=== PATIENT | male | born 1980 ===

== ENCOUNTER 2023-03-13 17:20 | Outpatient (REF) | payer MEDICAID, SELFPAY ==
[2023-03-13 20:50] LABS: Abs Immature Grans 0.01 10^3/uL (0.0-0.06); Absolute Basophil Count 0.04 10^3/uL (0.0-0.2); Absolute Eosinophil Count 0.15 10^3/uL (0.0-0.7); Absolute Monocyte Count 0.43 10^3/uL (0.1-0.8); Absolute Neutrophil Count 2.89 10^3/uL (1.2-6.7); Basophils % 0.7; Eosinophils % 2.5; HGB 15.9 g/dL (13.5-17.5); Immature Grans % 0.2; Lymphocytes % 40.5; MCH 28.9 pg (27.0-33.0); MCHC 33.1 % (32.0-36.0); MCV 87 fL (80-95); MPV 10.4 fL (8.0-11.0); Monocytes % 7.3; Neutrophils % 48.8; Platelet Count 215 10^3/uL (130-400); RDW-SD 41.6 fL; WBC 5.92 10^3/uL (4.4-10.8)
[2023-03-13 21:11] LABS: ALT 95 U/L (16-63); AST 71 U/L (15-37); Albumin 3.9 g/dL (3.4-5.0); Alkaline Phosphatase 98 U/L (46-116); Anion Gap 7.3 mmol/L (3-11); BUN 13 mg/dL (7-18); Bilirubin, Total 0.5 mg/dL (0.2-1.0); CO2 27.7 mmol/L (21.0-32.0); Calcium 9.7 mg/dL (8.5-10.1); Calculated LDL 140 mg/dL (<100); Chloride 103 mmol/L (98-107); Cholesterol 204 mg/dL (<200); Estimated GFR 95.77 (mL/min/1.73m2); Glucose 95 mg/dL (74-106); HDL Cholesterol 43 mg/dL (40-60); Potassium 4.9 mmol/L (3.5-5.1); Sodium 138 mmol/L (136-145); TSH (W/Ref FT4) 1.56 uIU/mL (0.36-3.74); Total Protein 9.1 g/dL (6.4-8.2); Triglyceride 108 mg/dL (<150)
== END 2023-03-13 17:21 | disposition home or self-care (01) ==
LOC: NCHCN 17:20
PROVIDERS: Visit Provider Family Medicine
DX: I10 Essential (primary) hypertension (principal); F19.10 Other psychoactive substance abuse, uncomplicated; E66.3 Overweight; Z13.220 Encounter for screening for lipoid disorders
CPT/HCPCS: 80053; 80061; 84443; 85025